=== PATIENT | female | born 1960 ===

== ENCOUNTER 2023-09-07 13:04 | Emergency (ER) | payer MEDICARE, MEDICAID ==
[2023-09-07] VITALS (8 sets, daily range): BP systolic 120–158; BP diastolic 56–92; PULSE 61–75; TEMP 97.6–98.3
[2023-09-07] MEDS ORDERED: EPITOL PO (13:25)
[2023-09-07] MEDS ORDERED: WELLBUTRIN 100100 MG PO (13:25)
[2023-09-07] MEDS ORDERED: VITAMIND3 5000 PO (13:26)
[2023-09-07] MEDS ORDERED: DRIZALMA SPRINK60 MG PO (13:26)
[2023-09-07] MEDS ORDERED: NEURONTIN600 MG/TAB PO (13:27)
[2023-09-07] MEDS ORDERED: MELATIN 3 MG-11 TAB PO (13:28)
[2023-09-07] MEDS ORDERED: SYNTHROID0.1 MG/TAB PO (13:28)
[2023-09-07] MEDS ORDERED: PRAVACHOL80 MG PO (13:29)
[2023-09-07] MEDS ORDERED: PREVIDENT5000PLUS DT (13:30)
[2023-09-07] MEDS ORDERED: ZYRTEC 10MG10 MG PO (13:31)
[2023-09-07] MEDS ORDERED: MYSOLINE 5050 MG/TAB PO (13:31)
[2023-09-07 14:10] LABS: BASO % 0.4 % (0.0-2.0); EOS % 0.4 % (0.0-4.0); GRAN # 5.7 K/mm3 (1.4-6.5); GRAN % 78.8 % (42.2-75.2); LYMPH # 0.8 K/mm3 (1.2-3.4); LYMPH % 11.6 % (20.0-51.0); MEAN CELL VOLUME 74 fl (80.0-100.0); MEAN CORPUSCULAR HGB CONC 26 g/dl (33.0-37.0); MEAN PLATELET VOLUME 9.7 fl (7.4-10.4); MONO # 0.6 K/mm3 (0.1-0.6); MONO % 8.2 % (1.7-9.3); PLATELET COUNT 348 K/mm3 (130-400); RED BLOOD COUNT 3.02 M/mm3 (4.10-5.30)
[2023-09-07] MEDS ORDERED: NS 1,000 ML IV ONE (14:15)
[2023-09-07 14:16] LABS: HEMATOCRIT 22.3 % (37.0-47.0); HEMOGLOBIN 5.8 g/dl (12.5-16.0); MEAN CORPUSCULAR HEMOGLOBIN 19 pg (27-31)
[2023-09-07 14:23] LABS: BILIRUBIN,TOTAL 0.1 mg/dL (0.2-1.2); CALCIUM 9.1 mg/dL (8.4-10.2); CREATININE, serum 0.93 mg/dL (0.57-1.11); POTASSIUM 4.5 mEq/L (3.5-4.5); TOTAL PROTEIN 6.3 g/dl (6.2-8.1)
[2023-09-07] MEDS ORDERED: FERROUSGLUC256MG PO (17:24)
== END 2023-09-07 18:40 | disposition home or self-care (01) ==
LOC: COL.ER 13:04
PROVIDERS: Physician Assistant
DX: D64.9 Anemia, unspecified (principal)
CPT/HCPCS: J7030; P9016

== ENCOUNTER 2023-09-09 08:54 | Emergency (ER) | payer MEDICARE, MEDICAID ==
[~2023-09-09] VITALS: Ht 167.6 cm; Wt 77.3 kg
[~2023-09-09 08:54] MED LIST: DRIZALMA SPRINK60 MG PO; EPITOL PO; FERROUSGLUC256MG PO; MELATIN 3 MG-11 TAB PO; MYSOLINE 5050 MG/TAB PO; NEURONTIN600 MG/TAB PO; PRAVACHOL80 MG PO; PREVIDENT5000PLUS DT; SYNTHROID0.1 MG/TAB PO; VITAMIND3 5000 PO; WELLBUTRIN 100100 MG PO; ZYRTEC 10MG10 MG PO
[2023-09-09 09:44] LABS: BASO # 0.1 K/mm3 (0.0-0.2); BASO % 0.6 % (0.0-2.0); EOS % 0.4 % (0.0-4.0); GRAN # 6.4 K/mm3 (1.4-6.5); GRAN % 80.6 % (42.2-75.2); LYMPH # 0.8 K/mm3 (1.2-3.4); LYMPH % 9.5 % (20.0-51.0); MEAN CELL VOLUME 77 fl (80.0-100.0); MEAN CORPUSCULAR HGB CONC 28 g/dl (33.0-37.0); MEAN PLATELET VOLUME 9.6 fl (7.4-10.4); MONO # 0.7 K/mm3 (0.1-0.6); MONO % 8.5 % (1.7-9.3); PLATELET COUNT 309 K/mm3 (130-400); RED BLOOD COUNT 3.14 M/mm3 (4.10-5.30); REDCELL DISTRIBUTION WIDTH-CV 19.8 % (11.5-14.5)
[2023-09-09 09:51] LABS: HEMATOCRIT 24.3 % (37.0-47.0); MEAN CORPUSCULAR HEMOGLOBIN 22 pg (27-31)
[2023-09-09 09:52] LABS: HEMOGLOBIN 6.8 g/dl (12.5-16.0)
[2023-09-09 09:58] LABS: ALBUMIN 2.9 g/dL (3.4-4.8); BILIRUBIN,TOTAL 0.2 mg/dL (0.2-1.2); CREATININE, serum 0.85 mg/dL (0.57-1.11); POTASSIUM 3.9 mEq/L (3.5-4.5); TOTAL PROTEIN 6.1 g/dl (6.2-8.1)
[2023-09-09] MEDS ORDERED: Iohexol 300 - 100 ML VIAL IV ONE (10:24)
[2023-09-09] MEDS ORDERED: NS 100 ML IV ONE (10:27)
[2023-09-09 11:50] VITALS: BP 120/58; PULSE 64; TEMP 97.6
[2023-09-09 12:05] VITALS: BP 122/68; PULSE 65; TEMP 97.6
[2023-09-09 12:35] VITALS: BP 131/66; PULSE 61; TEMP 97.7
[2023-09-09 13:35] VITALS: BP 137/71; PULSE 60; TEMP 97.7
[2023-09-09 14:27] VITALS: BP 140/70; PULSE 61; TEMP 97.7
[2023-09-09 15:21] LABS: HEMATOCRIT 28.8 % (37.0-47.0); HEMOGLOBIN 8.7 g/dl (12.5-16.0)
[2023-09-09] MEDS ORDERED: Ferrous Sulfate 325 MG TAB PO ONE (16:00)
[2023-09-09 16:41] VITALS: BP 157/85; PULSE 68
== END 2023-09-09 16:41 | disposition home or self-care (01) ==
LOC: COL.ER 08:54
PROVIDERS: Emergency Medicine
DX: D64.9 Anemia, unspecified (principal); K44.9 Diaphragmatic hernia without obstruction or gangrene; K20.91 Esophagitis, unspecified with bleeding; K29.71 Gastritis, unspecified, with bleeding
CPT/HCPCS: P9016; Q9967